=== PATIENT | male | born 1975 | race Caucasian/White ===

== ENCOUNTER 2016-12-23 19:12 | Emergency (ER) | payer BC, OTHER ==
[~2016-12-23] VITALS: Ht 180.3 cm; Wt 91.9 kg
[2016-12-23 19:18] VITALS: TEMP 36.7; Ht 180.3 cm; Wt 91.9 kg
[2016-12-23 20:19] VITALS: BP 110/72; PULSE 60; O2SAT 100
--- NOTE | 2016-12-23 20:32 | EMERGENCY ROOM VISIT NOTE ---
History Report prepared by Roopa: Kylee Castro Under the Supervision of: Dr. Tomas Salomon M.D. First contact with patient: 19:24 Chief Complaint: RECTAL BLEEDING Stated Complaint: BLOOD IN STOOL History of Present Illness The patient is a 41 year old male who presents to the Emergency Room with complaints of persistent rectal bleeding that started yesterday. The patient states that he had a bowel movement yesterday and noticed blood when he wiped afterward. He then looked in the toilet and noticed some blood in the toilet. He states that his stool was brown and looked normal. He also states that he did not experience any pain or discomfort when having the bowel movement. The patient denies abdominal pain. He experienced a similar episode earlier today when he had a bowel movement. He did not have any pain or discomfort with his bowel movement today either. The patient states that he has experienced hemorrhoids in the past, but he experienced discomfort with those, which he does not have currently. He states that he did not noticed any lumps or bumps when he wiped. The patient denies any previous bleeding issues. He is not on any blood thinners and denies any significant past medical issues. Source of History: patient Onset: yesterday Position: other (rectum) Quality: other (rectal bleeding) Timing: other (persistent) Associated Symptoms: No abdominal pain Note: no rectal pain or discomfort, no rectal lumps or bumps Review of Systems See HPI for pertinent positives & negatives. A total of 10 systems reviewed and were otherwise negative. Past Medical & Surgical Medical Problems: (1) No significant past medical history Family History Diabetes mellitus Social History Smoking Status: Never Smoker Marital Status: Housing Status: lives with family Current/Historical Medications No Active Prescriptions or Reported Meds Allergies Uncoded Allergies: NKA (Allergy, Unknown, 10/25/03) Physical Exam Vital Signs Date Time Temp Pulse Resp B/P Pulse Ox O2 Delivery O2 Flow Rate FiO2 12/23/16 20:19 60 110/72 100 12/23/16 19:18 36.7 73 18 131/70 96 Room Air Physical Exam GENERAL: Patient is in no acute distress. HEENT: No acute trauma, normocephalic atraumatic, mucous membranes moist, no nasal congestion, no scleral icterus. NECK: No stridor, no adenopathy, no meningismus, trachea is midline. LUNGS: Clear to auscultation bilaterally, no wheeze, no rhonchi, breath sounds equal. HEART: Without murmurs gallops or rubs, regular rate and rhythm. ABDOMEN: Soft, nontender, bowel sounds positive, no hernias, no peritonitis. EXTREMITIES: No cyanosis or edema, full range of motion of all the joints without pain or difficulty, no signs for acute trauma. RECTAL: No external source for bleeding, no hemorrhoids or fissures, no anal tear, digital rectal exam reveals no masses, no source for bleeding, no blood with digital exam. NEUROLOGIC: Oriented x 3, no acute motor or sensory deficits, no focal weakness. SKIN: No rash, no jaundice, no diaphoresis. Medical Decision & Procedures ED Course 1924: The patient was evaluated in room C10. A complete history and physical exam was performed. 1950: Discussed the patient's case with Dr. Jovita ODONNELL. She recommended having the patient call the office on Sunday to schedule a colonoscopy. 1957: Reevaluated the patient. Discussed results and discharge instructions: he verbalized understanding and agreement. The patient is ready for discharge. Medical Decision Differential diagnoses considered include anal tear, hemorrhoid, polyp, rectal malignancy, ulcerative colitis, fistula, abscess. The patient presents with 2 episodes of blood streaked bowel movements. He has no pain. He is in no distress. He is not on anticoagulants. Rectal exam revealed no source for the bleeding, there was no blood by digital rectal exam. I discussed the case with the on-call GI physician. The patient is being discharged to follow with them for a colonoscopy. The patient was encouraged to return here for heavier bleeding. The source of bleeding is not clear today and further outpatient workup will be required. Consults Time Called: 1931 Consulting Physician: Dr. Jovita ODONNELL Returned Call: 1950 Discussed the patient's case with Dr. Jovita ODONNELL. She recommended having the patient call the office on Sunday to schedule a colonoscopy. Impression Primary Impression: Rectal bleeding Scribe Attestation The scribe's documentation has been prepared under my direction and personally reviewed by me in its entirety. I confirm that the note above accurately reflects all work, treatment, procedures, and medical decision making performed by me. Departure Information Dispostion Home / Self-Care Prescriptions No Active Prescriptions or Reported Meds Referrals Abdifatah Jj III, M.D. (PCP) Patient Instructions My [facility] Additional Instructions call sunday to Dr. Nguyen's office of GI--you will likely need an colonoscopy-- [phone] return for worsening bleeding or pain today on exam there was no source for the bleeding found
== END 2016-12-23 20:20 | disposition home or self-care (01) ==
LOC: C.EDB 19:13 → C.EDC 20:20
DX: K62.5 Hemorrhage of anus and rectum (principal); Z83.3 Family history of diabetes mellitus